=== PATIENT | male | born 1950 | race Caucasian/White ===

== ENCOUNTER 2021-05-11 13:55 | Emergency (ER) | payer OTHER ==
[~2021-05-11] VITALS: Ht 177.8 cm; Wt 59.0 kg
[2021-05-11 13:57] VITALS: BP 115/57
[2021-05-11] MEDS ORDERED: LEVO500T89 PO (15:19)
[2021-05-11] MEDS ORDERED: AZITHROMYCIN 250 MG TABLET PO ONE (15:30)
[2021-05-11] MEDS: LEVOFLOXACIN 500 MG TABLET PO SCH ×3 (15:33→15:36)
[2021-05-11 15:40] VITALS: BP 129/67
== END 2021-05-11 15:54 | disposition home or self-care (01) ==
LOC: EDH 13:55
DX: J18.9 Pneumonia, unspecified organism (principal)
CPT/HCPCS: 71045